=== PATIENT | male | born 1955 | race Asian ===

== ENCOUNTER 2021-01-28 11:23 | Emergency (ER) | payer OTHER ==
[~2021-01-28] VITALS: Ht 170.2 cm; Wt 68.0 kg
[2021-01-28] MEDS ORDERED: GABA100 (12:25)
[2021-01-28] MEDS ORDERED: Lisinopril2.5 MG (12:25)
[2021-01-28] MEDS ORDERED: CYCL10 PO (14:27)
[2021-01-28] MEDS ORDERED: OXYC5 PO (14:27)
[2021-01-28] MEDS ORDERED: METPRE4DP PO (14:27)
== END 2021-01-28 14:48 | disposition home or self-care (01) ==
LOC: ER 11:23
DX: M54.16 Radiculopathy, lumbar region (principal); Z79.899 Other long term (current) drug therapy
CPT/HCPCS: 96374; 96375; 99284-25; J1100; J1170; J1885; J2060; J2405

== ENCOUNTER 2022-02-11 15:55 | Inpatient (IN) | payer OTHER, MEDICARE ==
[~2022-02-11] VITALS: Ht 167.6 cm; Wt 75.6 kg
[~2022-02-11 15:55] MED LIST: CYCL10 PO; GABA100; Lisinopril2.5 MG PO; METPRE4DP PO; ONDA4ODT MM; OXYC5 PO
[2022-02-11 17:17] LABS: BASOPHILS ABSOLUTE AUTO 0.04 K/mm3 (0.00-0.23); BASOPHILS PERCENT AUTO 0 % (0-2); EOSINOPHILS ABSOLUTE AUTO 0.01 K/mm3 (0.00-0.68); EOSINOPHILS PERCENT AUTO 0 % (0-6); Hematocrit 37.2 % (37.0-53.0); IMMATURE GRAN PERCENT AUTO 1 % (0-1); LYMPHOCYTES ABSOLUTE AUTO 1.34 K/mm3 (0.84-5.20); LYMPHOCYTES PERCENT AUTO 7 % (21-46); MONOCYTES ABSOLUTE AUTO 1.78 K/mm3 (0.16-1.47); MONOCYTES PERCENT AUTO 10 % (4-13); Mean Corpuscular HGB 31.3 pg (26.0-34.0); Mean Corpuscular HGB Conc 34.9 g/dL (31.5-36.5); Mean Corpuscular Volume 89 fL (80-100); Mean Platelet Volume 10.3 fL (9.1-12.4); NEUTROPHILS ABSOLUTE AUTO 15.46 K/mm3 (1.96-9.15); NEUTROPHILS PERCENT AUTO 82 % (41-73); Platelet Count 239 K/mm3 (150-400); RDW Coefficient Variation 12.4 % (11.7-14.2); RDW Standard Deviation 40.8 fL (35.1-46.3); Red Blood Cell Count 4.16 M/mm3 (4.30-5.90); White Blood Cell Count 18.83 K/mm3 (4.00-11.30)
[2022-02-11 17:41] LABS: Albumin, Blood 2.9 g/dL (3.4-5.0); Albumin/Globulin Ratio 0.6 (0.8-1.8); Bilirubin, Total 0.8 mg/dL (0.1-1.0); Bun/Creatinine Ratio 18.7 (12.0-20.0); Calcium, Blood 8.1 mg/dL (8.5-10.1); Creatinine, Blood 2.19 mg/dL (0.60-1.20); Globulin, Blood 4.8 g/dL (2.2-4.0); Potassium, Blood 4.1 mmol/L (3.5-5.5); Total Protein, Blood 7.7 g/dL (6.4-8.2)
[2022-02-11 22:12] LABS: Source, Urine Clean Catch
[2022-02-11 22:23] LABS: Appearance, Urine Hazy (Clear); Bilirubin, Urine Neg (Neg); Blood, Urine 5+ (Neg); Color, Urine Yellow (P-Yellow); Glucose Qualitative, Urine Neg (Neg); Ketones, Urine Neg (Neg); Leukocyte Esterase, Urine 3+ (Neg); Nitrite, Urine Neg (Neg); Protein, Urine 3+ (Neg); Specific Gravity, Urine 1.015 (1.003-1.022); Urobilinogen, Urine NORM (Normal)
[2022-02-11 22:52] LABS: Hyaline Casts 0-2 /lpf (0-2); White Blood Cells, Urine 25-50 /hpf (0-5)
[2022-02-11 22:53] LABS: Bacteria Many /hpf; Squamous Epithelial Cells Not Seen /hpf (Few)
[2022-02-12 05:13] LABS: Hematocrit 33.8 % (37.0-53.0); Hemoglobin 11.6 g/dL (13.5-17.5); Mean Corpuscular HGB 31.4 pg (26.0-34.0); Mean Corpuscular HGB Conc 34.3 g/dL (31.5-36.5); Mean Corpuscular Volume 91 fL (80-100); Platelet Count 210 K/mm3 (150-400); RDW Coefficient Variation 12.7 % (11.7-14.2); RDW Standard Deviation 42.5 fL (35.1-46.3); White Blood Cell Count 24.25 K/mm3 (4.00-11.30)
[2022-02-12 05:34] LABS: Bun/Creatinine Ratio 14.7 (12.0-20.0); Calcium, Blood 7.2 mg/dL (8.5-10.1); Creatinine, Blood 2.38 mg/dL (0.60-1.20); Potassium, Blood 4.4 mmol/L (3.5-5.5)
[2022-02-12 05:41] LABS: BAND PERCENT MAN 17 % (0-8); BASOPHILS PERCENT MAN 0 % (0-2); EOSINOPHILS PERCENT MAN 0 % (0-6); LYMPHOCYTES ABSOLUTE MAN 0.24 K/mm3 (0.84-5.20); LYMPHOCYTES PERCENT MAN 1 % (21-46); MONOCYTES ABSOLUTE MAN 1.45 K/mm3 (0.16-1.47); MONOCYTES PERCENT MAN 6 % (4-13); NEUTROPHILS ABSOLUTE MAN 22.55 K/mm3 (1.96-9.15); SEG NEUTROPHILS PERCENT MAN 76 % (41-73); TOTAL CELLS COUNTED 100
--- NOTE | 2022-02-12 05:43 | NUR ---
SHIFT SUMMARY: A/OX4, ADLIB IN ROOM. AT BEDSIDE TO ASSIST IN COMMUNICATION. PT APPEARS TO UNDERSTAND QUESTIONS WELL AND ANSWERS APPROPRIATLEY. IT CONSULTING MANAGER GAVE PERMISSION FOR SPOUSE TO STAY AT BEDSIDE FOR CONTINUED COMMUNICATION ASSISTANCE. PT INITIALLY FEBRILE ON TRANSFER, MONITORING THROUGHOUT THE NIGHT WITH RESOLVE. PT CONTINUED TO HAVE INCREASING ABDOMINAL PAIN- ADDITIONAL PRN PAIN MEDICATIONS ORDERED AND INCREASED CONCENTRATION. PT RESPONDING WELL TO 50MCG FENTANYL IV PUSH. NO NAUSEA OR VOMITING THROUGHOUT THE NIGHT. BED IN LOW POSITION, CALL BOYLE AND BELONGINGS IN REACH. PT CALLING APPROPRIATELY FOR ASSISTANCE WHEN NEEDED.
--- NOTE | 2022-02-12 18:04 | NUR ---
SHIFT SUMMARY PT AXO, PLEASANT AND COOPERATIVE WITH CARE. MEDICATED FOR FEVER X2 THIS SHIFT. DR KELLEY NOTIFIED WHEN TEMPERATURE OF 102.9, ICE PACKS PLACED IN AXILLAS BILATERALLY AND BEDDING REMOVED AND ADDITIONAL DOSE ORDERED PER WARREN TO BE ADMINISTERED IN 3 HOURS, SEE EMAR. 100.6 AT THIS TIME. PT UP AMBULTING IN ROOM AT THIS TIME WELL IN HOPES TO STIMULATE A BM. PATIENT HAS NOT HAD A BM THIS SHIFT AND AWAITING COLLECTION FOR LABS. OTHER VSS. IV PATENT AND SALINE LOCKED. BED IN LOW POSITION, CALL LIGHT WITHIN REACH. PT HAS POOR APPETITE. PT MEDICATED FOR PAIN AND GAS PER EMAR.
[2022-02-13 05:03] LABS: Hematocrit 31.5 % (37.0-53.0); Mean Corpuscular HGB 31.3 pg (26.0-34.0); Mean Corpuscular HGB Conc 34.9 g/dL (31.5-36.5); Mean Corpuscular Volume 90 fL (80-100); Mean Platelet Volume 9.9 fL (9.1-12.4); Platelet Count 208 K/mm3 (150-400); RDW Coefficient Variation 12.8 % (11.7-14.2); RDW Standard Deviation 42.3 fL (35.1-46.3); Red Blood Cell Count 3.52 M/mm3 (4.30-5.90); White Blood Cell Count 20.24 K/mm3 (4.00-11.30)
--- NOTE | 2022-02-13 05:16 | NUR ---
SHIFT SUMMARY PT IS PLEASANT AND COOPERATIVE WITH CARE. PT HAS BEEN GETTING MORPHINE FOR ABD PAIN, AND STS THIS AM THAT THE PAIN IN ABD IS GETTING BETTER. HOWEVER, PT HAS DEVELOPED A MODERATE HEADACHE. PT MEDICATED PER EMAR AND A CALL MADE TO DR NICHOLE FOR AN EXTRA DOSE OF TYLENOL. PT MEDICATED, GIVEN COOL WASH CLOTH, AND ROOM DARKENED. PT HAS CALL LIGHT WITHIN HIS REACH.
[2022-02-13 05:21] LABS: Alanine Aminotransfer (ALT/SGP 41 U/L (12-78); Albumin, Blood 2.1 g/dL (3.4-5.0); Albumin/Globulin Ratio 0.5 (0.8-1.8); Alk Phos 102 U/L (50-136); Anion Gap 8 mmol/L (6-16); Aspartate Aminotrans (AST/SGOT 34 U/L (12-37); Blood Urea Nitrogen 33 mg/dL (8-24); Bun/Creatinine Ratio 14.9 (12.0-20.0); CO2, Blood 22 mmol/L (21-32); Calcium, Blood 7.2 mg/dL (8.5-10.1); Chloride, Blood 103 mmol/L (98-108); Creatinine, Blood 2.21 mg/dL (0.60-1.20); Globulin, Blood 3.9 g/dL (2.2-4.0); Glomerular Filtration Rate 32 (60-); Glucose, Blood 126 mg/dL (70-99); Potassium, Blood 3.9 mmol/L (3.5-5.5); Sodium, Blood 133 mmol/L (136-145); Vancomycin, Random 6.1 ug/mL
[2022-02-13 05:22] LABS: BAND PERCENT MAN 19 % (0-8); BASOPHILS PERCENT MAN 0 % (0-2); EOSINOPHILS PERCENT MAN 1 % (0-6); LYMPHOCYTES ABSOLUTE MAN 2.02 K/mm3 (0.84-5.20); LYMPHOCYTES PERCENT MAN 10 % (21-46); MONOCYTES PERCENT MAN 2 % (4-13); SEG NEUTROPHILS PERCENT MAN 68 % (41-73); TOTAL CELLS COUNTED 100
[2022-02-13 09:23] LABS: Adenovirus F 40/41 Not Detected (NOT DETECT); Astrovirus Not Detected (NOT DETECT); Campylobacter Sp Not Detected (NOT DETECT); Cryptosporidium Not Detected (NOT DETECT); Cyclospora Cayetanensis Not Detected (NOT DETECT); E. Coli O157 Not Detected (NOT DETECT); Entamoeba Histolytica Not Detected (NOT DETECT); Enteroaggregative E. coli-EAEC Not Detected (NOT DETECT); Enteropathogenic E. coli-EPEC Not Detected (NOT DETECT); Enterotoxigenic E. coli-ETEC Not Detected (NOT DETECT); Giardia Lamblia Not Detected (NOT DETECT); Norovirus GI/GII Not Detected (NOT DETECT); Plesiomonas Shigelloides Not Detected (NOT DETECT); Rotavirus A Not Detected (NOT DETECT); Salmonella Sp Not Detected (NOT DETECT); Sapovirus Not Detected (NOT DETECT); Shiga Toxin-prod E. coli-STEC Not Detected (NOT DETECT); Shigella/Enteroin E. coli-EIEC Not Detected (NOT DETECT); Vibrio Cholerae Not Detected (NOT DETECT); Vibrio Sp Not Detected (NOT DETECT); Yersinia Enterocolitica Not Detected (NOT DETECT)
[2022-02-13 15:34] LABS: Bun/Creatinine Ratio 17.7 (12.0-20.0); Calcium, Blood 7.5 mg/dL (8.5-10.1); Creatinine, Blood 1.98 mg/dL (0.60-1.20); Potassium, Blood 3.9 mmol/L (3.5-5.5)
--- NOTE | 2022-02-13 17:29 | NUR ---
PT ADMITTED TO ROOM 336 AT 1630 FROM ED. AMBULATED SBA TO BED. PARK DRAINING LG AMOUNT OF CLEAR YELLOW. PT DENIES ANY PAIN. STATES HE IS VERY HYNGRY AND THIRSTY. THAT HIS LAST PO INTAKE WAS AM CLEARS. DINNER SLOLIS 02/12. ORIENTED TO ROOM SET UP AND CALL LIGHT. KNOWS LIMITS. AWAITING PERMACATH PLACEMENT PER DR EMERSON.
--- NOTE | 2022-02-13 19:18 | NUR ---
SUMMARY- PT A/O X4, UP TO BATHROOM INDEPENDANT. UNABLE TO TOLERATE ANY PO INTAKE TODAY. HAD SUBWAY SANDWICH BITES AND EMEISIS SOON AFTER. HAD ZOFRAN X2 AND CALLED FOR ADDITIONAL ANTIEMETIC. RECEIVED ORDER FOR PHENERGAN WITH APPARANT RELEIF PT FELL ASLEEP. CHANGED FROM MORPHINE TO FENT RELATED TO HEADACHE AFTER MS. PT'S MAIN COMPLAINT IS ABD BLOATING AND NAUSEA. HAD ONE LITER OF LR AND STARTED MAINTNANCE NS @125/HR. BOWEL TONES ARE NORMOACTIVE, ABD IS DISTENDED AND TENDER. PT HAD ONE SMALL SOFT BRONW BM THIS SHIFT. AT BEDSIDE MOST OF THE DAY; VERY SUPPORTIVE. REPORTED ALL TO AV FLAHERTY RN.
--- NOTE | 2022-02-14 04:14 | NUR ---
SHIFT SUMMARY PT PLEASANT AND COOPERATIVE WITH CARE. PT CONTINUES TO HAVE ABD BLOATING AND PAIN. PT MEDICATED WITH NAUSEA AND PAIN MEDICATIONS PER EMAR. PT STS HE IS HUNGRY, BUT IS UNABLE TO EAT ANYTHING. PT GIVEN JELLO AND CRACKERS TO TRY, BUT HE WAS NOT ABLE TO EAT THEM. PT IS DRINKING SMALL AMOUNTS OF WATER. PT GOT UP AND OUT OF BED EARLIER AND WALKED AROUND HIS ROOM. STS MADE HIM FEEL A BIT BETTER. PT WAS ABLE TO HAVE A BM AFTER DOING SO. PT HAS CALL LIGHT WITHIN HIS REACH.
[2022-02-14 08:11] LABS: BASOPHILS ABSOLUTE AUTO 0.03 K/mm3 (0.00-0.23); BASOPHILS PERCENT AUTO 0 % (0-2); EOSINOPHILS ABSOLUTE AUTO 0.15 K/mm3 (0.00-0.68); EOSINOPHILS PERCENT AUTO 1 % (0-6); Hematocrit 34.5 % (37.0-53.0); IMMATURE GRAN ABSOLUTE AUTO 0.18 K/mm3 (0.00-0.10); IMMATURE GRAN PERCENT AUTO 1 % (0-1); LYMPHOCYTES ABSOLUTE AUTO 1.53 K/mm3 (0.84-5.20); LYMPHOCYTES PERCENT AUTO 10 % (21-46); MONOCYTES ABSOLUTE AUTO 0.95 K/mm3 (0.16-1.47); MONOCYTES PERCENT AUTO 6 % (4-13); Mean Corpuscular HGB 31.3 pg (26.0-34.0); Mean Corpuscular HGB Conc 34.8 g/dL (31.5-36.5); Mean Corpuscular Volume 90 fL (80-100); Mean Platelet Volume 9.8 fL (9.1-12.4); NEUTROPHILS ABSOLUTE AUTO 13.09 K/mm3 (1.96-9.15); NEUTROPHILS PERCENT AUTO 82 % (41-73); Platelet Count 280 K/mm3 (150-400); RDW Coefficient Variation 12.9 % (11.7-14.2); RDW Standard Deviation 42.5 fL (35.1-46.3); Red Blood Cell Count 3.83 M/mm3 (4.30-5.90); White Blood Cell Count 15.93 K/mm3 (4.00-11.30)
[2022-02-14 08:32] LABS: Bun/Creatinine Ratio 16.9 (12.0-20.0); Calcium, Blood 7.8 mg/dL (8.5-10.1); Creatinine, Blood 1.83 mg/dL (0.60-1.20)
--- NOTE | 2022-02-14 14:12 | NUR ---
NURSE NOTE. PULLED FENTYNL FOR PAIN. PATIENT REQUESTED CHANGE BACK TO MORPHINE. ATTEMPTED TO CALL DR. CANCHOLA. WILL TRY AGAIN.
--- NOTE | 2022-02-14 16:18 | NUR ---
SHIFT SUMMARY PATIENT IS ALERT AND ORIENTED. PATIENT IS IND IN ROOM. PATIENT IS ADMITTED FOR COLITIS AND HAS BEEN HAVING PAIN. PATIENT MEDICATED WITH FENTYANL THIS MORNING. PATIENT HAD MILD RESULTS WITH FENTYANL. PATIENT REQUESTED CHANGE BACK TO MORPHINE, WHICH DR COLLINS ORDERED. PATIENT HAS BEEN GETTING ABX. IV SALINE LOCKED. PATIENT HAS HAD NO ACUTE EVENTS THIS EVENT. VITAL SIGNS REVEIEWED. PATIENT HAS NOT COMPLAINED OF NAUSEA, SOB OR VOMITTING THIS SHIFT. HAS BEEN WITH PATIENT AT BEDSIDE ALL DAY. BED IN LOCKED AND LOWEST POSITION. CALL LIGHT IN PLACE. WILL MONITOR UNTIL SHIFT CHANGE.
[2022-02-15 05:21] LABS: BASOPHILS ABSOLUTE AUTO 0.03 K/mm3 (0.00-0.23); BASOPHILS PERCENT AUTO 0 % (0-2); EOSINOPHILS ABSOLUTE AUTO 0.14 K/mm3 (0.00-0.68); EOSINOPHILS PERCENT AUTO 1 % (0-6); Hematocrit 34.4 % (37.0-53.0); Hemoglobin 12.1 g/dL (13.5-17.5); IMMATURE GRAN ABSOLUTE AUTO 0.24 K/mm3 (0.00-0.10); IMMATURE GRAN PERCENT AUTO 2 % (0-1); LYMPHOCYTES ABSOLUTE AUTO 2.27 K/mm3 (0.84-5.20); LYMPHOCYTES PERCENT AUTO 18 % (21-46); MONOCYTES ABSOLUTE AUTO 0.92 K/mm3 (0.16-1.47); MONOCYTES PERCENT AUTO 7 % (4-13); Mean Corpuscular HGB Conc 35.2 g/dL (31.5-36.5); Mean Corpuscular Volume 88 fL (80-100); Mean Platelet Volume 9.5 fL (9.1-12.4); NEUTROPHILS ABSOLUTE AUTO 9.28 K/mm3 (1.96-9.15); NEUTROPHILS PERCENT AUTO 72 % (41-73); Platelet Count 335 K/mm3 (150-400); RDW Coefficient Variation 12.5 % (11.7-14.2); RDW Standard Deviation 40.3 fL (35.1-46.3); White Blood Cell Count 12.88 K/mm3 (4.00-11.30)
[2022-02-15 05:47] LABS: Bun/Creatinine Ratio 16.2 (12.0-20.0); Calcium, Blood 7.8 mg/dL (8.5-10.1); Creatinine, Blood 1.67 mg/dL (0.60-1.20); Potassium, Blood 3.9 mmol/L (3.5-5.5)
--- NOTE | 2022-02-15 16:20 | NUR ---
SHIFT SUMMARY PATIENT IS ALERT AND ORIENTED. PATIENT HAS HAD REDUCED PAIN THIS SHIFT COMPARED TO PRIOR SHIFT. PATIENT HAS NOT REQUESTED PAIN MEDICATION THIS SHIFT. PATIENTS WBC IS TRENDING LOWER. PATIENT IS ADVANCING DIET TOLERATED. PATIENTS FAMILY HAS BEEN AT BEDSIDE ALL SHIFT. PATIENT HAS HAD NO ACUTE EVENTS THIS SHIFT. BED IN LOCKED AND LOWEST POSITION. CALL LIGHT IN PLACE. WILL MONITOR UNTIL SHIFT CHANGE.
[2022-02-16] MEDS ORDERED: Amoxicillin500 MG PO (10:35)
--- NOTE | 2022-02-16 11:19 | NUR ---
SHIFT SUMMARY PATIENT IS ALERT AND ORIENTED. PATIENT HAS BEEN PLEASENT AND COOPERATIVE WITH CARE. PATIENT HAS HAD NO ACUTE EVENTS THIS SHIFT. VITAL SIGNS REVIEWED. PATIENTS IV REMOVED WNL. PATIENT WAS READ DISCHARGE INFORMATION. PATIENT AGREED. PATIENTS MEDICATIONS FAXED TO [facility]. PATIENT WALKED OUT WITH TO HOME.
--- NOTE | 2022-02-16 11:42 | NUR ---
T/C FROM DR BAILEY, ADD AN ADDITIONAL 4 DAYS OF AMOXICILLIN AT 500MG TID FOR A TOTAL OF 6 DAYS. CALLED TO [facility].
== END 2022-02-16 11:11 | disposition home or self-care (01) | DRG 872 ==
LOC: ER 15:55 → MEDS 20:45
PROVIDERS: Hospitalist; Physician Assistant; Student in an Organized Health Care Education/Training Program; ADMIT Family Medicine
DX: A41.81 Sepsis due to Enterococcus (principal); N17.9 Acute kidney failure, unspecified; E87.1 Hypo-osmolality and hyponatremia; N39.0 Urinary tract infection, site not specified; A09 Infectious gastroenteritis and colitis, unspecified; R65.20 Severe sepsis without septic shock; I10 Essential (primary) hypertension; E87.8 Other disorders of electrolyte and fluid balance, not elsewhere classified; R94.31 Abnormal electrocardiogram [ECG] [EKG]; H92.03 Otalgia, bilateral; E86.0 Dehydration; D64.9 Anemia, unspecified; Z98.890 Other specified postprocedural states; Z79.899 Other long term (current) drug therapy
CPT/HCPCS: 36415; 36416; 74176; 80048; 80053; 80202; 81001; 83605; 85025; 87040; 87077; 87086; 87186; 87507; 93005; 93010; 96365; 96375; 99285-25; A9270; J0290; J0696; J1885; J2270; J2405; J2543; J2550; J3010; J3370; J7030; J7040; J7060; J7120